=== PATIENT | female | born 1955 | race Caucasian/White ===

== ENCOUNTER 2017-10-21 20:34 | Emergency (ER) | payer OTHER ==
[2017-10-21 22:16] LABS: ADD MAN DIFF? NO
[2017-10-21 22:22] LABS: BASOPHIL # 0.1 10^3/ul (0.0-0.1); BASOPHILS % 0.5 % (0.0-2.0); EOSINOPHILS # 0.1 10^3/ul (0.0-0.5); EOSINOPHILS % 0.7 % (0.0-7.0); HEMOGLOBIN 15.1 g/dl (12.0-16.0); LYMPHOCYTES # 4.4 10^3/ul (0.8-2.9); LYMPHOCYTES % 36.6 % (15.0-51.0); MEAN CORPUSCULAR HEMOGLOBIN 28.8 pg (29.0-33.0); MEAN CORPUSCULAR HGB CONC 32.8 g/dl (32.0-37.0); MEAN CORPUSCULAR VOLUME 87.6 fl (82.0-101.0); MEAN PLATELET VOLUME 10.6 fl (7.4-10.4); MONOCYTE # 0.6 10^3/ul (0.3-0.9); MONOCYTES % 4.8 % (0.0-11.0); NEUTROPHIL # 6.8 10^3/ul (1.6-7.5); NEUTROPHILS % 57.1 % (39.0-77.0); PLATELET COUNT 292 10^3/UL (140-415); RED BLOOD COUNT 5.25 10^6/ul (4.20-5.40); RED CELL DISTRIBUTION WIDTH 13.3 % (11.5-14.5)
[2017-10-21 22:22] LABS: WHITE BLOOD COUNT 11.9 10^3/ul (4.8-10.8)
[2017-10-21] MEDS: ONDANSETRON 4 MG INJ IV (22:35)
[2017-10-21] MEDS: HYDROmorphONE 1 MG/5 ML IV SYRINGE IV (22:35)
[2017-10-21] MEDS: ASPIRIN 325 MG TAB PO (22:35)
[2017-10-21 22:37] LABS: ALANINE AMINOTRANSFERASE 21 IU/L (13-69); ALBUMIN 4.5 g/dl (3.3-4.9); ALBUMIN/GLOBULIN RATIO 1.28; ALKALINE PHOSPHATASE 106 IU/L (42-121); ANION GAP 16 (8-16); ASPARTATE AMINO TRANSFERASE 22 IU/L (15-46); BILIRUBIN,INDIRECT 0.1 mg/dl (0-1.1); BILIRUBIN,TOTAL 0.1 mg/dl (0.2-1.3); BLOOD UREA NITROGEN 19 mg/dl (7-20); CALCIUM 10.1 mg/dl (8.4-10.2); CARBON DIOXIDE 27 mmol/L (21-31); CHLORIDE 106 mmol/L (97-110); CREATINE KINASE 60 IU/L (23-200); CREATININE 0.86 mg/dl (0.44-1.00); GLUCOSE 100 mg/dl (70-220); POTASSIUM 4.4 mmol/L (3.5-5.1); SODIUM 145 mmol/L (135-144)
[2017-10-21 22:39] LABS: INR 0.84; PARTIAL THROMBOPLASTIN TIME 27.8 Sec (25.0-35.0); PROTIME 11.6 Sec (11.9-14.9); PT RATIO 0.9
[2017-10-21 22:47] LABS: B-TYPE NATRIURETIC PEPTIDE 39 PG/ML (0-125); CK INDEX 0.9; CK-MB 0.55 ng/ml (0.0-2.4)
[2017-10-21 22:52] LABS: TROPONIN-I < 0.012 ng/ml (0.000-0.120)
== END 2017-10-21 23:37 | disposition home or self-care (01) ==
LOC: E/R 20:34
DX: R07.1 Chest pain on breathing (principal)
CPT/HCPCS: 36415; 71045; 80053; 82550; 82553; 83880; 84484; 85025; 85610; 85730; 93005; 96374; 96375; 99285-25

== ENCOUNTER 2018-05-20 17:42 | Emergency (ER) | payer OTHER ==
[2018-05-20] MEDS: BUPIVACAINE 0.25% (MPF) 30 ML INJ INJ (18:51)
[2018-05-20] MEDS: BUPIVACAINE 0.25% (MPF) 10 ML 10 ML VIAL INJ (18:51)
== END 2018-05-20 20:26 | disposition home or self-care (01) ==
LOC: FTE 17:42
DX: M79.605 Pain in left leg (principal); R40.2412 Glasgow coma scale score 13-15, at arrival to emergency department; Z87.891 Personal history of nicotine dependence
CPT/HCPCS: 20552; 73510; 73562; 99284-25